=== PATIENT | female | born 1950 | race Two or more races ===

== ENCOUNTER → 2024-07-03 | Outpatient (CLI) | payer OTHER, SELFPAY ==
[2024-07-03 15:44] LABS: Basophils % (Auto) 0 % (0-2.5); Eosinophils # (Auto) 0.1 Thou/mm3 (0.0-0.5); Eosinophils % (Auto) 2 % (0-10); Hematocrit 42.4 % (36.0-46.0); Hemoglobin 14.1 g/dL (12.0-16.0); Immature Granulocytes % (Auto) 0 % (0-0); Immature Granulocytes Auto 0.02 Thou/mm3 (0.00-0.00); Lymphocytes # (Auto) 1.5 Thou/mm3 (1.0-4.8); Lymphocytes % (Auto) 28 % (10-50); Mean Corpuscular HGB Conc 33.3 g/dl (31.0-37.0); Mean Corpuscular Hemoglobin 30.6 pg (25.0-35.0); Mean Corpuscular Volume 92 fL (80-100); Monocytes # (Auto) 0.6 Thou/mm3 (0.0-0.8); Monocytes % (Auto) 12 % (0-12); Neutrophils # (Auto) 3.1 Thou/mm3 (1.8-7.7); Neutrophils % (Auto) 58 % (37-80); Nucleated Red Blood Cell % 0 /100 WBC (0); Platelet Count 237 Thou/mm3 (140-440); RDW Standard Deviation 41.8 fL (36.4-46.3); Red Blood Count 4.61 Miln/mm3 (4.00-5.20); White Blood Count 5.4 Thou/mm3 (3.6-11.0)
[2024-07-03 16:03] LABS: Alanine Aminotransferase 22 U/L (10-49); Albumin, Serum 4.2 gm/dL (3.4-4.8); Albumin/Globulin Ratio 1.7 (1.2-2.2); Alkaline Phosphatase 90 U/L (46-116); Anion Gap 5 (7-16); Aspartate Amino Transferase 21 U/L (0-34); BUN/Creatinine Ratio 14 Ratio (12-20); Bilirubin,Total 0.5 mg/dL (0.3-1.2); Blood Urea Nitrogen 14 mg/dL (9-23); Calcium 10.4 mg/dL (8.3-10.6); Calcium (Corrected) 10.4 mg/dL (8.5-10.1); Carbon Dioxide 31.4 mMol/L (20.0-31.0); Chloride 104 mMol/L (98-107); Globulin 2.5 gm/dL (2.3-3.5); Glucose 118 mg/dL (74-106); Osmolality,Calculated 280 (275-295); Potassium 4.5 mMol/L (3.4-5.1); Sodium 140 mMol/L (136-145); Total Protein 6.7 gm/dL (5.7-8.2); eGFR 59 See Note
== END | disposition home or self-care (01) ==
LOC: COPL 14:33 → SCTO 07-04 06:19
PROVIDERS: PCP Family Medicine; Referring Provider Internal Medicine Hematology & Oncology; Visit Provider Internal Medicine Hematology & Oncology
DX: C44.300 Unspecified malignant neoplasm of skin of unspecified part of face (principal)
CPT/HCPCS: 36415; 80053; 85025

== ENCOUNTER → 2024-08-01 | Outpatient (CLI) | payer OTHER, SELFPAY ==
--- NOTE | 2024-08-01 13:00 | XR_ITS ---
Examination: Screening digital mammography, bilateral Computer aided detection 3-D breast Tomosynthesis, bilateral Date and time of exam: August 01, 2024 1258 hours Compared to mammograms dating to 05/10/2019 Indication: Screening Technique: Nonmagnified MLO, CC views of the breasts to been obtained, reconstructed from 3-D Tomosynthesis images. R2 computer aided detection program utilized for evaluation of suspicious masses and/or abnormal calcifications. 3-D Tomosynthesis images obtained. Findings: The breasts are heterogeneously dense, which may obscure small masses 5 mm nodule upper outer right breast Benign calcifications Impression: BI-RADS Category 0: Incomplete: Need additional imaging evaluation 5 mm nodule upper outer right breast, recommend follow-up spot tomographic views of this nodule as well as right breast sonography to complete the workup
--- NOTE | 2024-08-01 13:15 | XR_ITS ---
Examination: Bone densitometry Date and time of exam:March 01, 2024 1312 hours INDICATIONS: Hysterectomy age 40, family history cisterns with osteoporosis Technique: Lumbar spine and hip total bone mineralization values of an calculated. Peak reference and age match control results have been displayed. Findings: Lumbar spine total bone mineralization is1.082 gm/cm2. This is 0.3 standard deviations above peak reference. This is 2.7 standard deviations above age-matched controls. Hip total bone mineralization is 1.086 gm/cm2 This is 0.9 standard deviations above peak reference. This is 2.7 standard deviations above age-matched controls Impression: There is normal mineralization based on lumbar spine measurements. There is osteopenia based on hip measurements Lumbar mineralization is increased 2.3% compared with July 29, 2022 Hip mineralization is increased 6.4% compared with July 29, 2022
== END | disposition home or self-care (01) ==
PROVIDERS: PCP Family Medicine; Referring Provider Family Medicine; Visit Provider Family Medicine
DX: Z12.31 Encounter for screening mammogram for malignant neoplasm of breast (principal); N63.11 Unspecified lump in the right breast, upper outer quadrant; M85.88 Other specified disorders of bone density and structure, other site
CPT/HCPCS: 77063; 77067; 77080

== ENCOUNTER 2024-08-08 13:32 | Outpatient (RCR) | payer OTHER, SELFPAY ==
--- NOTE | 2024-08-27 22:17 | CTCFLWUP_ITS ---
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 Patient has no complain ts concerning for recurrence. Patient had her routine mammogram and was advised that she needed ultr asound. Patient also have difficulty doing any work with her hands that her hands are getting crooke d and patient requesting referral to specialist. There is no change in her appetite or weight loss. ONCOLOGY HISTORY: As below INTERVAL HISTORY: Akua Bronson is a 74-year-old ENG speaking female with history of hypertension, bilateral oophorectomy and hysterectomy in 1996 for tumor in the uterus, asthma as well as a right knee arthri tis had a small nodule removed from the left malar cheek on 02/08/2019. Pathology showed mucinous car cinoma. The neoplastic cells are cytokeratin 7+ and cytokeratin 20 negative. Her last colonoscopy a nd EGD was done by Dr. Desai about a year ago. According to Ms. Bronson he did not see any signific ant pathology. She will be repeating her EGD and colonoscopy in about a year. She had mammograms do ne few years ago. 04/05/2019: Excision of the left cheek skin showed adenocarcinoma, favor metastasis, consistent with m etastasis from breast primary. 04/27/2019: CT scan of the chest abdomen and pelvis without contrast?no evidence of metastatic disease. 04/30/2019: MRI of the brain with IV contrast?significant mucosal thickening in the right maxillary ant rum. No enhancing oral pharyngeal or nasopharyngeal lesion noted. 05/10/2019: Bilateral screening mammograms?BI-RADS Category 2: Benign findings. 06/10/2019: Bilateral breast ultrasound done BI-RADS Category 2: Benign findings. 06/20/2019: Bilateral breast MRI done which showed BI-RADS Category 2: Benign findings. 05/12/2019: PET CT scan?negative for metastatic disease. 07/04/2019?07/31/2019: Patient received 4500 cGy radiation to the left cheek area. 05/02/2021: PET/CT scan?negative for metastatic disease. 07/29/2022: Bilateral screening mammograms? DIAGNOSIS: Metastatic adenocarcinoma left cheek (02/08/2019) of unknown primary. History of uterine tumor, status post bilateral salpingo-oophorectomy and hysterectomy in 1996. DATE OF DIAGNOSIS: 02/08/2019 STAGE/TNM: Stage IV locally advanced TREATMENT HISTORY: Care?Plan Start?Date Cycle Day Intent HISTORY OF PRESENT ILLNESS: 76-year-old ENG speaking female with history of hypertension, bilateral oophorectomy and hys terectomy in 1996 for tumor in the uterus, asthma as well as a right knee arthritis had a small nodul e removed from the left malar cheek on 02/08/2019. Pathology showed mucinous carcinoma. The neoplastic cells are cytokeratin 7+ and cytokeratin 20 negative. Her last colonoscopy and EGD was done by Dr. Desai about a year ago. According to Ms. Bronson he did not see any significant pathology. She will be repeating her EGD and colonoscopy in about a year. She had mammograms done few years ago. 04/05/2019: Excision of the left cheek skin showed adenocarcinoma, favor metastasis, consistent with m etastasis from breast primary. 04/27/2019: CT scan of the chest abdomen and pelvis without contrast?no evidence of metastatic disease. 04/30/2019: MRI of the brain with IV contrast?significant mucosal thickening in the right maxillary ant rum. No enhancing oral pharyngeal or nasopharyngeal lesion noted. 05/10/2019: Bilateral screening mammograms?BI-RADS Category 2: Benign findings. 06/10/2019: Bilateral breast ultrasound done BI-RADS Category 2: Benign findings. 06/20/2019: Bilateral breast MRI done which showed BI-RADS Category 2: Benign findings. 05/12/2019: PET CT scan?negative for metastatic disease. 07/04/2019?07/31/2019: Patient received 4500 cGy radiation to the left cheek area. 05/02/2021: PET/CT scan?negative for metastatic disease. 07/29/2022: Bilateral screening mammograms? 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 Advair HFA - 230-21 mcg/actuation 2 As directed 2. atorvastatin - 10 mg As directed 3. Calcium + D - 1 Capsule Twice a Day 4. hydrochlorothiazide - 25 mg 1 tab Daily 5. losartan - 50 mg As directed 6. montelukast - 10 mg As directed 7. Vitamin C (ascorbate calcium) - As directed 8. Vitamin D (with calcium) - Medications Last Reconciled by Kylah Cannon MA on 08/08/2024 ALLERGIES: IV CONTRAST REVIEW OF SYSTEMS: A complete 14-point review of systems was performed and is negative except as noted in interval histo ry. PHYSICAL EXAMINATION: VITAL SIGNS: PAIN: 0 - No pain Conjunctive are pink. Neck is supple. No adenopathy in the neck axilla or inguinal region. No tenderness noted on the lef t side of the face. No nodules palpable. Chest clear to auscultation. No wheezes or rails audible. Abdomen is soft. No hepatosplenomegaly noted. Extremities no clubbing or cyanosis. LABORATORY DATA: I have personally reviewed and interpreted each of the patient?s relevant lab tests, abnormal finding s are below: Date 07/03/24 ??WHITE?BLOOD?COUNT?(Thou/mm3) 5.4 ??RED?BLOOD?COUNT?(Miln/mm3) 4.61 ??HEMOGLOBIN?(gm/dl) 14.1 ??HEMATOCRIT?(%) 42.4 ??PLATELET?COUNT?(Thou/mm3) 237 ??NEUTROPHILS?%,?AUTO?(%) 58 ??LYMPH?%,?AUTO?(%) 28 ??NEUTROPHILS,?AUTO?(Thou/mm3) 3.1 IMPRESSION/PLAN: Ms. Bronson continues to remain asymptomatic. No clinical evidence of recurrence of her malignancy. PET CT scan done on 05/02/2021 is negative for metastatic disease. Metastatic adenocarcinoma of the left cheek consistent with metastasis from breast primary. Breast mammograms, ultrasound as well as MRI did not show any lesions in the breast. Status post radiation therapy to the left side of the cheek as described above. History of bilateral salpingo- oophorectomy and hysterectomy in 1996 for tumor in the uterus here in [place]. PLAN: The patient is feeling so good that she does not want to have any scans done. Continue yearly screening mammograms. She would like to come back and see us in 1 year with blood test. ORDERS: X ray both hands for RA REFER TO RHEUMATOLOGY [email or web address] RETURN TO CLINIC: 1 year BILLING AND COMPLIANCE: I reviewed external records from providers outside my specialty as summarized above. I spent a total of 50 minutes on this patient?s care on the day of their visit excluding time spent related to any bi lled procedures. This time includes time spent with the patient as well as time spent documenting in the medical record, reviewing patients records and tests, obtaining history, placing orders, communi cating with other healthcare professionals, counseling the patient, family or caregiver, and/or care coordination for the diagnoses above. Electronically Signed by: Nate Dougherty MD T: 10:15 PM CC: Brian? PCP: Moreno Lynn Referring: Moreno Lynn This document was completed utilizing speech recognition software. Grammatical errors, random word in sertions, pronoun errors, and incomplete sentences are an occasional consequence of this system due t o software limitations, ambient noise, and hardware issues. Any formal questions or concerns about th e content, text or information contained within the body of this dictation should be directly address ed to the provider for clarification.
== END 2024-08-21 23:59 | disposition home or self-care (01) ==
LOC: SCTC 13:32
PROVIDERS: PCP Family Medicine; Referring Provider Family Medicine; Visit Provider Internal Medicine Hematology & Oncology
DX: Z08 Encounter for follow-up examination after completed treatment for malignant neoplasm (principal); Z85.828 Personal history of other malignant neoplasm of skin; Z92.3 Personal history of irradiation; Z90.710 Acquired absence of both cervix and uterus; Z90.722 Acquired absence of ovaries, bilateral
CPT/HCPCS: 99212; G0463

== ENCOUNTER → 2024-09-05 | Outpatient (CLI) | payer OTHER, SELFPAY ==
--- NOTE | 2024-09-05 10:00 | XR_ITS ---
Examination: Breast ultrasound, unilateral, right complete Date and time of exam: September 05, 2024 1009 hours INDICATIONS: Mammogram August 01, 2024 5 mm nodule upper outer right breast Technique: Real-time campbell scale ultrasonographic imaging performed right breast including all 4 quadrants as well as nipple retroareolar and axillary region. Findings: 11:00 cyst 11 x 9 mm No solid masses depicted IMPRESSION: BI-RADS Category 2: Benign findings
--- NOTE | 2024-09-05 10:30 | XR_ITS ---
Examination: Diagnostic digital mammography, unilateral, right Computer aided detection 3-D breast Tomosynthesis, unilateral Date and time of exam: September 05, 2024 1020 hours INDICATIONS: Mammogram August 01, 2024 5 mm nodule upper outer right breast Technique: Nonmagnified MLO, CC views of the right breast have been obtained, reconstructed from 3-D Tomosynthesis images. R2 computer aided detection program utilized for evaluation of suspicious masses and/or abnormal calcifications. 3-D Tomosynthesis images obtained. Findings: The breast is heterogeneously dense, which may obscure small masses Circumscribed 8 mm nodule upper right breast, likely corresponding to 11:00 cyst described on right breast sonogram today Impression: BI-RADS category 2: Benign findings Return to yearly follow-up mammography
[2024-09-05 11:04] LABS: Collection Type, Urine Clean Catch
[2024-09-05 11:43] LABS: Basophils % (Auto) 0 % (0-2.5); Eosinophils # (Auto) 0.1 Thou/mm3 (0.0-0.5); Eosinophils % (Auto) 1 % (0-10); Hematocrit 44.9 % (36.0-46.0); Hemoglobin 14.9 g/dL (12.0-16.0); Immature Granulocytes % (Auto) 1 % (0-0); Immature Granulocytes Auto 0.03 Thou/mm3 (0.00-0.00); Lymphocytes # (Auto) 1.5 Thou/mm3 (1.0-4.8); Lymphocytes % (Auto) 25 % (10-50); Mean Corpuscular HGB Conc 33.2 g/dl (31.0-37.0); Mean Corpuscular Hemoglobin 30.3 pg (25.0-35.0); Mean Corpuscular Volume 91 fL (80-100); Monocytes # (Auto) 0.5 Thou/mm3 (0.0-0.8); Monocytes % (Auto) 9 % (0-12); Neutrophils # (Auto) 3.7 Thou/mm3 (1.8-7.7); Neutrophils % (Auto) 64 % (37-80); Nucleated Red Blood Cell % 0 /100 WBC (0); Platelet Count 252 Thou/mm3 (140-440); RDW Standard Deviation 40.7 fL (36.4-46.3); Red Blood Count 4.91 Miln/mm3 (4.00-5.20); White Blood Count 5.8 Thou/mm3 (3.6-11.0)
[2024-09-05 11:46] LABS: Bilirubin,Urine Negative (Negative); Blood,Urine Negative (Negative); Clarity,Urine Clear (Clear/Hazy); Color,Urine Lt-Yellow (Lt Yel-Yel); Glucose, Urine Negative (Negative); Ketones,Urine Negative (Negative); Leukocyte Esterase,Urine Positive (Negative); Nitrite,Urine Negative (Negative); PH,Urine 6.5 (5.0-7.0); Protein,Urine Negative (Neg - Trace); RBC,Urine 3 /hpf (0-3); Specific Gravity,Urine 1.012 (1.001-1.035); Squamous Epithelial Cell,Urine 2 /hpf (0-5); Urobilinogen,Urine Negative mg/dL (0.0-1.0); WBC,Urine 9 /hpf (0-5)
[2024-09-05 12:06] LABS: Alanine Aminotransferase 20 U/L (10-49); Albumin, Serum 4.6 gm/dL (3.4-4.8); Albumin/Globulin Ratio 1.8 (1.2-2.2); Alkaline Phosphatase 82 U/L (46-116); Anion Gap 11 (7-16); Aspartate Amino Transferase 16 U/L (0-34); BUN/Creatinine Ratio 18 Ratio (12-20); Bilirubin,Total 0.6 mg/dL (0.3-1.2); Blood Urea Nitrogen 16 mg/dL (9-23); Calcium 10.4 mg/dL (8.3-10.6); Calcium (Corrected) 10.4 mg/dL (8.5-10.1); Cardiac Risk Estimate 3.9 RATIO (3.7-5.6); Chloride 102 mMol/L (98-107); Cholesterol 204 mg/dL (132-200); Creatinine (Component) 0.9 mg/dL (0.6-1.3); Globulin 2.6 gm/dL (2.3-3.5); Glucose 99 mg/dL (74-106); HDL Cholesterol 52 mg/dL (40-60); LDL Cholesterol,Calculated 109 mg/dL (0-130); Osmolality,Calculated 284 (275-295); Potassium 4.3 mMol/L (3.4-5.1); Sodium 142 mMol/L (136-145); Thyroid Stimulating Hormone 2.32 uIU/mL (0.55-4.78); Total Protein 7.2 gm/dL (5.7-8.2); Triglycerides 216 mg/dL (30-150); Uric Acid 6.5 mg/dL (3.1-7.8); eGFR > 60 See Note
== END | disposition home or self-care (01) ==
LOC: CDIM 10:35 → COPL 10:36
PROVIDERS: PCP Family Medicine; Referring Provider Family Medicine; Visit Provider Radiology Diagnostic Radiology
DX: N63.15 Unspecified lump in the right breast, overlapping quadrants (principal); R92.321 Mammographic fibroglandular density, right breast; Z00.00 Encounter for general adult medical examination without abnormal findings; E78.2 Mixed hyperlipidemia; I10 Essential (primary) hypertension; E79.0 Hyperuricemia without signs of inflammatory arthritis and tophaceous disease
CPT/HCPCS: 36415; 76641; 77061; 77065; 80053; 80061; 81001; 84443; 84550; 85025; G0279

== ENCOUNTER → 2024-10-12 | Outpatient (CLI) | payer OTHER, SELFPAY ==
--- NOTE | 2024-10-12 10:21 | XR_ITS ---
Examination: Bilateral hands, 6 views. Technique: AP, Oblique, Lateral each hand total 6 views Date and time of exam: October 12, 2024 1028 hours INDICATIONS: Bilateral hand swelling and pain beginning 3 months ago Findings: Moderate osteopenia Bilateral significant osteoarthritis distal interphalangeal joints second through fifth digits and interphalangeal joints first digits as well as proximal interphalangeal joint right fourth digit No erosive arthritis No fractures IMPRESSION: Osteoarthritis as above
--- NOTE | 2024-10-12 10:21 | XR_ITS ---
Examination: Bilateral wrists 6 views TECHNIQUE: AP oblique lateral each wrist total 6 views Exam date and time: October 12, 2024 1034 hours INDICATIONS: Bilateral wrist pain beginning 3 months ago. FINDINGS: Moderate osteopenia No fracture or dislocation involving either wrist Bilateral moderate narrowing radiocarpal navicular trapezium first carpometacarpal joints Soft tissue vascular calcification IMPRESSION: Bilateral moderate narrowing radiocarpal, navicular trapezium, first carpometacarpal joints
== END | disposition home or self-care (01) ==
PROVIDERS: PCP Family Medicine
DX: M19.042 Primary osteoarthritis, left hand (principal); M19.041 Primary osteoarthritis, right hand; M25.832 Other specified joint disorders, left wrist; M25.831 Other specified joint disorders, right wrist
CPT/HCPCS: 73110; 73130

== ENCOUNTER → 2024-12-04 | Outpatient (CLI) | payer OTHER, SELFPAY ==
[2024-12-04 16:29] LABS: Basophils % (Auto) 1 % (0-2.5); Eosinophils # (Auto) 0.1 Thou/mm3 (0.0-0.5); Eosinophils % (Auto) 2 % (0-10); Hematocrit 43.8 % (36.0-46.0); Hemoglobin 14.2 g/dL (12.0-16.0); Immature Granulocytes % (Auto) 1 % (0-0); Immature Granulocytes Auto 0.05 Thou/mm3 (0.00-0.00); Lymphocytes # (Auto) 1.4 Thou/mm3 (1.0-4.8); Lymphocytes % (Auto) 22 % (10-50); Mean Corpuscular HGB Conc 32.4 g/dl (31.0-37.0); Mean Corpuscular Hemoglobin 30.8 pg (25.0-35.0); Mean Corpuscular Volume 95 fL (80-100); Monocytes # (Auto) 0.7 Thou/mm3 (0.0-0.8); Monocytes % (Auto) 10 % (0-12); Neutrophils # (Auto) 4.4 Thou/mm3 (1.8-7.7); Neutrophils % (Auto) 65 % (37-80); Nucleated Red Blood Cell % 0 /100 WBC (0); Platelet Count 232 Thou/mm3 (140-440); RDW Standard Deviation 44.3 fL (36.4-46.3); Red Blood Count 4.61 Miln/mm3 (4.00-5.20); White Blood Count 6.7 Thou/mm3 (3.6-11.0)
[2024-12-04 16:41] LABS: Sed Rate (ESR) 9 mm/hr (0-30)
[2024-12-04 16:47] LABS: Alanine Aminotransferase 18 U/L (10-49); Albumin, Serum 4.1 gm/dL (3.4-4.8); Albumin/Globulin Ratio 1.6 (1.2-2.2); Alkaline Phosphatase 74 U/L (46-116); Anion Gap 6 (7-16); Aspartate Amino Transferase 17 U/L (0-34); BUN/Creatinine Ratio 21 Ratio (12-20); Bilirubin,Total 0.6 mg/dL (0.3-1.2); Blood Urea Nitrogen 21 mg/dL (9-23); C-Reactive Protein < 0.5 mg/dL (0.0-0.9); Calcium 9.6 mg/dL (8.3-10.6); Calcium (Corrected) 9.6 mg/dL (8.5-10.1); Carbon Dioxide 30.7 mMol/L (20.0-31.0); Chloride 108 mMol/L (98-107); Globulin 2.5 gm/dL (2.3-3.5); Glucose 96 mg/dL (74-106); Osmolality,Calculated 291 (275-295); Potassium 4.8 mMol/L (3.4-5.1); Sodium 145 mMol/L (136-145); Total Protein 6.6 gm/dL (5.7-8.2); eGFR 59 See Note
[2024-12-05 15:46] LABS: RA Screen Negative (Negative)
[2024-12-10 08:14] LABS: C-Peptide* 6.38 ng/mL (0.80-3.85)
== END | disposition home or self-care (01) ==
LOC: COPL 14:47
PROVIDERS: PCP Family Medicine; Referring Provider Internal Medicine; Visit Provider Internal Medicine
DX: M15.0 Primary generalized (osteo)arthritis (principal)
CPT/HCPCS: 36415; 80053; 84681; 85025; 85652; 86140; 86430

== ENCOUNTER → 2025-01-16 | Outpatient (CLI) | payer OTHER, SELFPAY ==
--- NOTE | 2025-01-16 14:35 | XR_ITS ---
Examination: Lumbar spine, 5 views Technique: Lumbar spine AP, lateral, coned lateral lower lumbar spine, bilateral obliques 5 views Exam date and time: January 08, 2025 1441 hours INDICATIONS: Lower back pain beginning 3 months ago. FINDINGS: Significant osteopenia No lumbar fracture Mild to moderate diffuse lumbar disc narrowing Moderate lumbar spondylosis IMPRESSION: Mild to moderate diffuse lumbar degenerative disc disease
== END | disposition home or self-care (01) ==
LOC: CDIM 14:26
PROVIDERS: PCP Family Medicine; Referring Provider Family Medicine; Visit Provider Family Medicine
DX: M51.360 Other intervertebral disc degeneration, lumbar region with discogenic back pain only (principal)
CPT/HCPCS: 72110

== ENCOUNTER → 2025-08-02 | Outpatient (CLI) | payer OTHER, SELFPAY ==
--- NOTE | 2025-08-02 10:15 | XR_ITS ---
Examination: Screening digital mammography, bilateral Computer aided detection 3-D breast Tomosynthesis, bilateral Date and time of exam: 08/02/2025, 10:31 a.m. Comparisons: July 2024, August 2024 Indications: Screening Technique: Nonmagnified MLO, CC views of the breasts to been obtained, reconstructed from 3-D Tomosynthesis images. R2 computer aided detection program utilized for evaluation of suspicious masses and/or abnormal calcifications. 3-D Tomosynthesis images obtained. Technologist: Findings: The breasts are heterogeneously dense, which may obscure small masses. No evidence of abnormal masses or suspicious calcifications. Impression: BI-RADS category 1: Negative findings (within normal) Recommend 1 year follow-up mammogram
[2025-08-02 11:51] LABS: Basophils # (Auto) 0.1 Thou/mm3 (0.0-0.2); Basophils % (Auto) 1 % (0-2.5); Eosinophils # (Auto) 0.0 Thou/mm3 (0.0-0.5); Eosinophils % (Auto) 1 % (0-10); Hematocrit 45.6 % (36.0-46.0); Hemoglobin 15.0 g/dL (12.0-16.0); Immature Granulocytes Auto 0.07 Thou/mm3 (0.00-0.00); Lymphocytes # (Auto) 1.2 Thou/mm3 (1.0-4.8); Lymphocytes % (Auto) 18 % (10-50); Mean Corpuscular HGB Conc 32.9 g/dl (31.0-37.0); Mean Corpuscular Hemoglobin 30.1 pg (25.0-35.0); Mean Corpuscular Volume 92 fL (80-100); Monocytes # (Auto) 0.6 Thou/mm3 (0.0-0.8); Monocytes % (Auto) 8 % (0-12); Neutrophils # (Auto) 4.7 Thou/mm3 (1.8-7.7); Neutrophils % (Auto) 71 % (37-80); Nucleated Red Blood Cell # 0.00 Thou/mm3 (0.00-0.00); Nucleated Red Blood Cell % 0 /100 WBC (0); Platelet Count 299 Thou/mm3 (140-440); RDW Standard Deviation 40.8 fL (36.4-46.3); Red Blood Count 4.98 Miln/mm3 (4.00-5.20); White Blood Count 6.6 Thou/mm3 (3.6-11.0)
[2025-08-02 11:55] LABS: Collection Type, Urine Clean Catch
[2025-08-02 12:14] LABS: Glucose Estimated Average 120 mg/dL (80-131); Hemoglobin A1C 5.8 % Hgb (4.8-6.0)
[2025-08-02 12:23] LABS: Bacteria,Urine 3+; Bilirubin,Urine Negative (Negative); Blood,Urine 1+ (Negative); Color,Urine Yellow (Lt Yel-Yel); Glucose, Urine Negative (Negative); Ketones,Urine Negative (Negative); Leukocyte Esterase,Urine Positive (Negative); Nitrite,Urine Positive (Negative); PH,Urine 6.5 (5.0-7.0); Protein,Urine Trace (Neg - Trace); RBC,Urine 17 /hpf (0-3); Specific Gravity,Urine 1.008 (1.001-1.035); Squamous Epithelial Cell,Urine 7 /hpf (0-5); Urobilinogen,Urine Negative mg/dL (0.0-1.0); WBC,Urine 1394 /hpf (0-5)
[2025-08-02 12:26] LABS: Clarity,Urine Hazy (Clear/Hazy)
[2025-08-02 15:37] LABS: Alanine Aminotransferase 43 U/L (10-49); Albumin, Serum 4.7 gm/dL (3.4-4.8); Albumin/Globulin Ratio 1.5 (1.2-2.2); Alkaline Phosphatase 85 U/L (46-116); Anion Gap 13 (7-16); Aspartate Amino Transferase 31 U/L (0-34); BUN/Creatinine Ratio 12 Ratio (12-20); Bilirubin,Total 0.8 mg/dL (0.3-1.2); Blood Urea Nitrogen 14 mg/dL (9-23); Calcium 10.5 mg/dL (8.3-10.6); Calcium (Corrected) 10.5 mg/dL (8.5-10.1); Carbon Dioxide 27.6 mMol/L (20.0-31.0); Cardiac Risk Estimate 4.5 RATIO (3.7-5.6); Chloride 102 mMol/L (98-107); Cholesterol 202 mg/dL (132-200); Creatinine (Component) 1.2 mg/dL (0.6-1.3); Globulin 3.2 gm/dL (2.3-3.5); Glucose 115 mg/dL (74-106); HDL Cholesterol 45 mg/dL (40-60); LDL Cholesterol,Calculated 121 mg/dL (0-130); Osmolality,Calculated 286 (275-295); Potassium 3.6 mMol/L (3.4-5.1); Sodium 143 mMol/L (136-145); Thyroid Stimulating Hormone 2.18 uIU/mL (0.55-4.78); Total Protein 7.9 gm/dL (5.7-8.2); Triglycerides 182 mg/dL (30-150); Uric Acid 6.8 mg/dL (3.1-7.8); eGFR 47 See Note
[2025-08-02 15:54] LABS: Syphilis Nonreactive (Nonreactive)
[2025-08-02 22:05] LABS: Vitamin B12 971 pg/mL (211-911)
== END | disposition home or self-care (01) ==
LOC: CDIM 10:22 → COPL 10:42
PROVIDERS: Referring Provider Family Medicine; Visit Provider Family Medicine
DX: Z12.31 Encounter for screening mammogram for malignant neoplasm of breast (principal); Z00.00 Encounter for general adult medical examination without abnormal findings; Z83.3 Family history of diabetes mellitus; E78.2 Mixed hyperlipidemia; I10 Essential (primary) hypertension; E79.0 Hyperuricemia without signs of inflammatory arthritis and tophaceous disease; R41.3 Other amnesia
CPT/HCPCS: 36415; 77063; 77067; 80053; 80061; 81001; 82607; 83036; 84443; 84550; 85025; 86780